=== PATIENT | male | born 1970 | race Two or more races ===

== ENCOUNTER 2021-12-14 13:01 | Day surgery (SDC) | payer MEDICARE ==
[~2021-12-14] VITALS: Ht 177.8 cm; Wt 86.2 kg
[2021-12-14] MEDS ORDERED: CT SWABBABLE VALVE TRANS SET 1 EA INFUS.SET MC ONE (13:34)
[2021-12-14] MEDS ORDERED: IV NS 0.9% 250 ML IV ONE (13:34)
[2021-12-14] MEDS ORDERED: IOHEXOL-350 100 ML VIAL IV ONE (13:34)
[2021-12-14] MEDS ORDERED: NITROGLYCERIN 0.4 MG/TAB BOTTLE ONE (13:40)
--- NOTE | 2021-12-14 13:56 | NUR ---
CTA PROCEDURE WELL TOLERATED BY THE PT. PT IS AAOX4, NOT IN RESPIRATORY DISTRESS, V/S STABLE, KEPT RESTED AND COMFORTABLE. IV SITE INTACT AND INFUSING WELL. REPORT GIVEN TO EMS FOR PT TRANSFER BACK TO [facility].
[2021-12-14] MEDS ORDERED: NITROGLYCERIN 0.4 MG/TAB BOTTLE SL ONE (14:00)
[2021-12-14] MEDS ORDERED: METOPROLOL TARTRATE INJ 5 MG/5 ML AMPUL IVP PRN (14:00)
[2021-12-14 14:01] VITALS: BP 106/57
== END 2021-12-14 13:59 | disposition short-term general hospital (02) ==
LOC: CT 13:01
PROVIDERS: ATTEND Internal Medicine Interventional Cardiology
DX: I25.10 Atherosclerotic heart disease of native coronary artery without angina pectoris (principal)
CPT/HCPCS: 75574; J7050; Q9967

== ENCOUNTER 2023-09-24 09:50 | Day surgery (SDC) | payer MEDICARE ==
[~2023-09-24] VITALS: Ht 180.3 cm; Wt 90.7 kg
[2023-09-24] MEDS ORDERED: IOHEXOL-350 100 ML VIAL IV ONE (15:21)
[2023-09-24] MEDS ORDERED: IV NS 0.9% 250 ML IV ONE (15:21)
[2023-09-24] MEDS ORDERED: CT SWABBABLE VALVE TRANS SET 1 EA INFUS.SET MC ONE (15:21)
[2023-09-24] MEDS ORDERED: METOPROLOL TARTRATE INJ 5 MG/5 ML AMPUL IVP PRN (16:00)
[2023-09-24] MEDS ORDERED: NITROGLYCERIN 0.4 MG/TAB BOTTLE SL ONE (16:00)
== END 2023-09-24 15:49 | disposition short-term general hospital (02) ==
LOC: CT 09:50
PROVIDERS: ATTEND Internal Medicine Interventional Cardiology
DX: I65.22 Occlusion and stenosis of left carotid artery (principal); I25.10 Atherosclerotic heart disease of native coronary artery without angina pectoris; R07.9 Chest pain, unspecified; Z95.1 Presence of aortocoronary bypass graft
CPT/HCPCS: 75574; J7050; Q9967